=== PATIENT | female | born 1975 | race Caucasian/White ===

== ENCOUNTER 2024-03-23 12:49 | Outpatient (CLI) | payer BC | END 2024-03-23 12:50 | disposition home or self-care (01) | LOC: BICMAMMO 12:49 | PROVIDERS: ATTEND Nurse Practitioner Family | DX: Z12.31 Encounter for screening mammogram for malignant neoplasm of breast (principal); N64.89 Other specified disorders of breast; Z98.82 Breast implant status | CPT/HCPCS: 77063; 77067 ==

== ENCOUNTER 2024-04-08 09:31 | Outpatient (CLI) | payer BC | END 2024-04-08 09:32 | disposition home or self-care (01) | LOC: BICMAMMO 09:31 | PROVIDERS: ATTEND Nurse Practitioner Family | DX: N64.89 Other specified disorders of breast (principal) | CPT/HCPCS: G0279 ==